=== PATIENT | male | born 1965 | race Caucasian/White ===

== ENCOUNTER 2025-07-14 09:21 | Inpatient (IN) | payer BC, SELFPAY ==
--- NOTE | 2025-06-25 13:40 | CM ---
Demographics: confirmed
Living situation: lives independently with
Support Person Post Operatively:
History of
VN: No
SNF: No
Outpatient: [facility]
Has patient purchased required equipment: yes
PCP: active
Pharmacy: [facility]
Post Operative Discharge Plan: Home with , Outpatient PT.
--- NOTE | 2025-07-02 13:10 | PTCARENOTE ---
Preop EKG showed Critical test result: AV block, 2nd degree, Mobitz I. Pt is asymptomatic. Spoke to Carmen in cardiac services. Pt is free to leave.
[2025-07-02 14:04] VITALS: BMI 39.1
[2025-07-02 14:29] VITALS: BMI 39.1
[2025-07-02 14:37] LABS: Hematocrit 45.3 % (39.0-52.0); Hemoglobin 15.4 g/dL (13.0-18.0); Mean Corp Hgb Conc. 34.0 g/dL (33.0-37.0); Mean Corpuscular Volume 93.8 fL (80.0-94.0); Platelet Count 323 10^3/uL (130-400); Red Cell Dist. Width 13.0 % (11.5-14.5)
[2025-07-02 15:28] LABS: ALT (SGPT) 28 U/L (0-50); AST (SGOT) 25 U/L (17-59); Albumin 4.4 g/dl (3.5-5.0); Alkaline Phosphatase 62 U/L (38-126); Blood Urea Nitrogen 13 mg/dl (9-20); Calcium 9.8 mg/dl (8.4-10.2); Carbon Dioxide 33 mmol/L (22-30); Chloride 99 mmol/L (98-107); Estimated Creatinine Clearance > 125 ml/min; Glucose 90 mg/dl (70-99); Potassium 4.1 mmol/L (3.5-5.1); Sodium 140 mmol/L (135-145); Total Protein 6.9 g/dl (6.3-8.2); eGFR > 60.00
[2025-07-03 08:48] LABS: Glycohemoglobin (HgbA1c) 5.7 % (4.0-5.9)
[2025-07-14] VITALS (13 sets, daily range): BP systolic 92–161; BP diastolic 31–91; PULSE 62; O2SAT 98
[2025-07-14] MEDS: CELEBREX 200 MG PO (09:47)
[2025-07-14] MEDS: TYLENOL 650 MG PO ×3 (09:48→19:48)
[2025-07-14] MEDS: NORMOSOL-R/PLASMALYTE-A 1000 IV ×2 (09:49→14:23)
[2025-07-14 10:02] LABS: Glucose - Point of Care 95 mg/dl (70-99)
--- NOTE | 2025-07-14 12:31 | W.PN.UPDATE ---
Update Note
Progress Note Update
L hip OA s/p L NAA w/ Dr Francis 07/14/25
- s/p R NAA, 12/2020, by Dr Francis
DVT prophylaxis - ASA, b/l venous foot pumps
HTN, on multidrug regimen - + parameters - monitor BP
- Ensure adequate pain control to reduce potential BP elevations
Newly diagnosed second-degree AV block, Mobitz type 1 - asymptomatic - monitor on tele
- Per cardio, will have echo/heart monitor in near future
MARISOL, compliant with CPAP (setting 18) and chronic ULLOA - monitor O2
- IS
- Resume CPAP HS
NIDDM, A1c 5.7 - monitor BS
- Add SSI AC, low dose Lantus HS to accommodate for potential BS elevations
- Diabetic carb controlled diet
- Would benefit from Cefadroxil upon d/c
Ambulatory dysfunction - on fall precautions
HLD
Gout
Chronic rhinitis
Obesity, BMI 39.0
Infrequent tobacco abuse
Cannabis dependence
[2025-07-14 13:18] LABS: Glucose - Point of Care 99 mg/dl (70-99)
[2025-07-14] MEDS: ROXICODONE 5 MG PO ×2 (13:44→22:09)
[2025-07-14] MEDS: FLORASTOR 250 MG PO ×2 (15:42→19:47)
[2025-07-14] MEDS: NOVOLOG FLEXPEN-MODERATE RESISTANCE SC (16:53)
[2025-07-14 17:06] LABS: Glucose - Point of Care 190 mg/dl (70-99)
[2025-07-14] MEDS: TYLENOL PO (17:12)
[2025-07-14] MEDS: ASPIRIN 325 MG PO (17:17)
[2025-07-14] MEDS: LIPITOR 40 MG PO (17:17)
[2025-07-14] MEDS: NOVOLOG FLEXPEN-MODERATE RESISTANCE 1 UNITS SC (17:18)
--- NOTE | 2025-07-14 17:58 | PTCARENOTE ---
pt admitted from PACU AOx3 denies pain. LCTA b/L on RA. abd round obese, nt +BSx4. no edema, skin CDI with exception of surgical dressing on lateral hip. pt working with PT OT. VS WNL AccuCheck, NV checks. CB in reach, instructed to use.
[2025-07-14] MEDS: ANCEF 5 IV (19:46)
[2025-07-14] MEDS: COLACE 100 MG PO (19:47)
[2025-07-14] MEDS: BACTROBAN 2% OINTMENT 1 APPLIC NASAL (19:47)
[2025-07-14] MEDS: NORVASC PO (19:48)
[2025-07-14] MEDS: SENOKOT 17.2 MG PO (19:48)
[2025-07-14] MEDS: ZESTRIL PO (19:49)
[2025-07-14 21:50] LABS: Glucose - Point of Care 139 mg/dl (70-99)
[2025-07-14] MEDS: NEURONTIN 200 MG PO (22:08)
[2025-07-14] MEDS: LANTUS 0.05 UNITS SC (22:08)
[2025-07-14] MEDS: SINGULAIR 10 MG PO (22:09)
[2025-07-14] MEDS: PEPCID 20 MG PO (22:09)
[2025-07-15] MEDS: TYLENOL 650 MG PO ×4 (00:06→11:52)
[2025-07-15 03:13] VITALS: BP 127/72
[2025-07-15] MEDS: ANCEF 5 IV (03:55)
[2025-07-15 07:43] LABS: Glucose - Point of Care 114 mg/dl (70-99)
[2025-07-15 07:51] VITALS: BP 123/76
--- NOTE | 2025-07-15 08:07 | CM ---
Cm met with patient. Patient confirmed outpatient appointment with [facility] on 07/16. Patient is enthusiastic for home discharge. CM will remain available as needed.
PLAN: home with outpatient PT.
--- NOTE | 2025-07-15 08:22 | W.PN.ORTHO ---
Today's Communication / Plan
-
Await PT and OT recs.
D/c later today if remaining clinically stable.
Assessment
.
Distal Motor Intact: Yes
Dressing:
Clean, dry and intact.
Assessment:
L hip OA s/p L NAA w/ Dr Francis 07/14/25
- s/p R NAA, 12/2020, by Dr Francis
DVT prophylaxis - ASA, b/l venous foot pumps
HTN, on multidrug regimen - + parameters - BPs overall stable
- Ensured adequate pain control to reduce potential BP elevations
Newly diagnosed second-degree AV block, Mobitz type 1 - asymptomatic - rhythm stable on tele
- Per cardio, will have echo/heart monitor in near future (likely 2 mo time)
MARISOL, compliant with CPAP (setting 18) and chronic ULLOA - O2 stable on RA by POD 1
- IS
- Resume CPAP HS
NIDDM, A1c 5.7 - BS readings stable w/ measures below
- Added SSI AC, low dose Lantus HS during admission to accommodate for potential BS elevations
- Diabetic carb controlled diet
- Would benefit from Cefadroxil upon d/c
Ambulatory dysfunction - on fall precautions
HLD
Gout
Chronic rhinitis
Obesity, BMI 39.0
Infrequent tobacco abuse
Cannabis dependence
Plan
.
Surgery / Date: Diogenes JACOME w/ Dr Francis 07/14/25
DVT Prophylaxis: Aspirin
Activity:
Out of bed.
PT/OT
Discharge Plan: Home w/ Outpatient PT
Subjective
.
.:
Patient resting comfortably in his chair.
L hip pain minimal w/ current pain meds.
Denies any new significant complaints.
Eager for potential d/c today.
Vital Signs and Labs
.
Vital Signs and Labs:
Lab Results
07/02/25 12:48
07/02/25 12:48
Temp Pulse Resp BP Pulse Ox
98.7 F 73 16 123/76 93
07/15/25 07:51 07/15/25 07:51 07/15/25 07:51 07/15/25 07:51 07/15/25 07:51
Non-invasive Hgb result: 14.3
Physical Exam
-
HEENT: No pallor, cyanosis, or jaundice. Throat clear.
NECK: Supple. No JVD.
RESPIRATORY: Lungs clear to auscultation.
CVS: S1, S2 normal. RRR.
ABDOMEN: Soft, non-tender. No distension. Obese.
EXTREMITIES: Strength equal, no calf pain with palpation/dorsiflexion. Calves soft.
MAINFRAME SYSTEMS PROGRAMMER: AOx3. No focal deficits. medical services manager grossly intact
--- NOTE | 2025-07-15 08:34 | W.DS.TRANS ---
DC Summary - Securities Analyst
-
Discharge Instructions:
Sleep Apnea Risk High
Discharge Diagnosis/Procedures L hip OA s/p L NAA w/ Dr Francis 07/14/25
Diet Diabetic, Carb Controlled
Additional Diets Adequate hydration, minimize opioids, and wear
TEDs stockings to prevent low blood pressure/
dizziness.
Activity As tolerated,With Walker
Driving Restrictions Not until seen by your Dr
Bathing Restrictions OK to Shower
Other Services PT
Wound Care Dressing to be removed 1 week post-surgery.
Bowen to be removed at 2 week follow-up with
surgeon's office.
Instructions:
Stand-Alone Forms: Total Hip/Knee Replacement D/C
Changes to Home Medications: Yes
Discharge Medications:
DC Medications w/original date entered in [facility] [employer]
albuterol sulfate 90 mcg/actuation aerosol inhaler 1 puff inhalation R Q4HPRN PRN SOB 11/26/20
atorvastatin 40 mg tablet 40 mg PO QPM High cholesterol 11/26/20
colchicine 0.6 mg tablet 0.6 mg PO BIDPRN PRN GOUT 11/26/20
fluticasone propionate 50 mcg/actuation nasal spray,suspension 1 spray intranasal BID Allergies 11/26/20
loratadine 10 mg tablet 10 mg PO QPM PRN ALLERGIES 11/26/20
multivitamin with folic acid 400 mcg tablet (Tab-A-Andres) 1 tab PO DAILY Supplement 11/26/20
Tart Doran Extract 500 mg PO BID herbal ##0 12/22/20
Held on 07/15/25. Instructions: Resume on 07/21/25.
turmeric 450 mg-turmeric root extract 50 mg capsule 1 ea PO BID herbal ##0 12/22/20
Held on 07/15/25. Instructions: Resume on 07/21/25.
ipratropium bromide 42 mcg (0.06 %) nasal spray 2 spray intranasal BID Allergies 06/30/25
montelukast 10 mg tablet 10 mg PO HS Allergies 06/30/25
tirzepatide 15 mg/0.5 mL subcutaneous pen injector (Mounjaro) 15 mg SC QWEEK WEIGHT LOSS 06/30/25
cefadroxil 500 mg capsule 500 mg PO BID #14 caps 07/02/25
celecoxib 200 mg capsule (Celebrex) 200 mg PO DAILY #14 caps 07/02/25
famotidine 20 mg tablet (Pepcid) 20 mg PO HS #30 tabs 07/02/25
gabapentin 300 mg capsule 300 mg PO HS neuropathic pain/sleep #10 caps 07/02/25
mupirocin 2 % topical ointment 1 applic intranasal BID #1 tube 07/02/25
ondansetron HCl 4 mg tablet 4 mg PO Q6H PRN nausea and vomiting #30 tabs 07/02/25
oxycodone 5 mg tablet 5 - 10 mg (1 - 2 x 5 mg) PO Q6H PRN moderate-severe pain #30 tabs 07/02/25
Saccharomyces boulardii 250 mg capsule (Florastor) 250 mg PO BID #14 caps 07/15/25
acetaminophen 500 mg tablet (Tylenol Extra Strength) 1,000 mg (2 x 500 mg) PO Q6H pain #60 tabs 07/15/25
amlodipine 5 mg tablet 5 mg PO BID Blood pressure #0 tabs 07/15/25
aspirin 325 mg tablet 325 mg PO DAILY #30 tabs 07/15/25
docusate sodium 100 mg capsule 100 mg PO BID #30 caps 07/15/25
hydrochlorothiazide 25 mg tablet 25 mg PO DAILY Blood pressure #1 tab 07/15/25
lisinopril 20 mg tablet 40 mg (2 x 20 mg) PO BID Blood pressure #1 tab 07/15/25
magnesium hydroxide 400 mg/5 mL oral suspension (Milk of Magnesia) 30 ml PO HS PRN constipation #3,780 mL 07/15/25
sennosides 8.6 mg tablet (Junie-kris) 17.2 mg (2 x 8.6 mg) PO BID #30 tabs 07/15/25
spironolactone 25 mg tablet 12.5 mg (1/2 x 25 mg) PO DAILY Fluid retention/Swelling #1 tab 07/15/25
Home Medication Changes
cefadroxil 500 mg capsule 500 mg PO BID #14 caps 07/02/25
celecoxib 200 mg capsule (Celebrex) 200 mg PO DAILY #14 caps 07/02/25
famotidine 20 mg tablet (Pepcid) 20 mg PO HS #30 tabs 07/02/25
gabapentin 300 mg capsule 300 mg PO HS neuropathic pain/sleep #10 caps 07/02/25
ondansetron HCl 4 mg tablet 4 mg PO Q6H PRN nausea and vomiting #30 tabs 07/02/25
oxycodone 5 mg tablet 5 - 10 mg (1 - 2 x 5 mg) PO Q6H PRN moderate-severe pain #30 tabs 07/02/25
Saccharomyces boulardii 250 mg capsule (Florastor) 250 mg PO BID #14 caps 07/15/25
acetaminophen 500 mg tablet (Tylenol Extra Strength) 1,000 mg (2 x 500 mg) PO Q6H pain #60 tabs 07/15/25
aspirin 325 mg tablet 325 mg PO DAILY #30 tabs 07/15/25
docusate sodium 100 mg capsule 100 mg PO BID #30 caps 07/15/25
magnesium hydroxide 400 mg/5 mL oral suspension (Milk of Magnesia) 30 ml PO HS PRN constipation #3,780 mL 07/15/25
sennosides 8.6 mg tablet (Junie-kris) 17.2 mg (2 x 8.6 mg) PO BID #30 tabs 07/15/25
Pending Results: No
[2025-07-15] MEDS: NOVOLOG FLEXPEN-MODERATE RESISTANCE SC (08:43)
[2025-07-15] MEDS: ZESTRIL 40 MG PO (08:46)
[2025-07-15] MEDS: COLACE 100 MG PO (08:47)
[2025-07-15] MEDS: NORVASC 5 MG PO (08:47)
[2025-07-15] MEDS: ASPIRIN 325 MG PO (08:47)
[2025-07-15] MEDS: CELEBREX 200 MG PO (08:48)
[2025-07-15] MEDS: FLORASTOR 250 MG PO (08:48)
[2025-07-15] MEDS: SENOKOT 17.2 MG PO (08:48)
[2025-07-15] MEDS: ROXICODONE 5 MG PO (08:48)
[2025-07-15] MEDS: BACTROBAN 2% OINTMENT 1 APPLIC NASAL (08:51)
[2025-07-15 09:58] VITALS: BP 136/80; PULSE 84; O2SAT 97
[2025-07-15 11:10] VITALS: BP 141/75; PULSE 69; O2SAT 95
[2025-07-15 11:31] VITALS: BP 131/79
[2025-07-15] MEDS: FLUZONE (6 mos+) 2025-2026 FORMULA 0.5 ML IM (11:51)
== END 2025-07-15 12:40 | disposition home or self-care (01) | DRG 470 ==
LOC: 2 SOUTH 09:21
PROVIDERS: ADMITTING PHYSICIAN Specialist; FAMILY PHYSICIAN Nurse Practitioner Family
PROC: 0SRB01A Replacement of Left Hip Joint with Metal Synthetic Substitute, Uncemented, Open Approach (ICD-10-PCS; 2025-07-14)
PROC: 3E02340 Introduction of Influenza Vaccine into Muscle, Percutaneous Approach (ICD-10-PCS; 2025-07-15)
DX: M16.12 Unilateral primary osteoarthritis, left hip (principal); Z68.39 Body mass index [BMI] 39.0-39.9, adult; E66.9 Obesity, unspecified; Z96.641 Presence of right artificial hip joint; I10 Essential (primary) hypertension; E78.5 Hyperlipidemia, unspecified; I44.1 Atrioventricular block, second degree; G47.33 Obstructive sleep apnea (adult) (pediatric); J31.0 Chronic rhinitis; F17.290 Nicotine dependence, other tobacco product, uncomplicated; F12.20 Cannabis dependence, uncomplicated; E11.9 Type 2 diabetes mellitus without complications; Z79.85 Long-term (current) use of injectable non-insulin antidiabetic drugs; Z23 Encounter for immunization
CPT/HCPCS: 36415; 73502; 80053; 82962; 83036; 85027; 87070; 90656; 93005; 97110; 97116; 97162; 97166; 97530; 97535; C1713; C1776; G0008

== ENCOUNTER → 2025-08-27 09:04 | Outpatient (REF) | payer BC, SELFPAY | LOC: RCS 09:04 | PROVIDERS: ATTENDING PHYSICIAN Nuclear Medicine Nuclear Cardiology; FAMILY PHYSICIAN Nurse Practitioner Family | DX: I10 Essential (primary) hypertension (principal); R94.31 Abnormal electrocardiogram [ECG] [EKG]; I44.1 Atrioventricular block, second degree | CPT/HCPCS: 93306 ==